=== PATIENT | male | born 1960 | race Caucasian/White ===

== ENCOUNTER 2024-04-09 16:23 | Emergency (ER) | payer MEDICARE ==
[2024-04-09] MEDS ORDERED: Naloxone 2 MG/2 ML Syringe IVPUSH PRN ×2 (16:32→20:38)
[2024-04-09] MEDS: HYDROmorphone 2 MG/ML Syringe IVPUSH PRN (16:35)
[2024-04-09] MEDS: HYDROmorphone 1 MG/ML Syringe IVPUSH ONE (16:37)
[2024-04-09] MEDS: Tranexamic Acid 1,000 MG in Sodium Chloride 0.9% 100 ML IV SCH (16:39)
[2024-04-09] MEDS: HYDROmorphone 2 MG/ML Syringe IVPUSH ONE (16:45)
[2024-04-09 16:46] LABS: BASOPHILS ABSOLUTE AUTO 0.05 K/uL (0.02-0.10); BASOPHILS PERCENT AUTO 0.4 % (0.0-0.5); EOSINOPHILS ABSOLUTE AUTO 0.14 K/uL (0.04-0.40); EOSINOPHILS PERCENT AUTO 1.1 % (1.0-5.0); HEMATOCRIT 46.1 % (40.0-54.0); HEMOGLOBIN 15.5 g/dL (13.0-18.0); LYMPHOCYTES ABSOLUTE AUTO 2.78 K/uL (1.50-4.00); MEAN CORPUSCULAR HEMOGLOBIN 29.5 pg (27.0-32.0); MEAN CORPUSCULAR HGB CONC 33.6 g/dL (31.0-35.0); MEAN CORPUSCULAR VOLUME 88 fL (76-96); MONOCYTES ABSOLUTE AUTO 1.31 K/uL (0.20-0.80); MONOCYTES PERCENT AUTO 9.9 % (3.0-10.0); NEUTROPHILS ABSOLUTE AUTO 8.94 K/uL (2.00-7.50); NEUTROPHILS PERCENT AUTO 67.6 % (45.0-70.0); PLATELET COUNT,PLT 222 K/uL (150-400); RED BLOOD CELL COUNT 5.25 M/uL (4.50-6.50); WHITE BLOOD CELL COUNT,WBC 13.2 K/uL (4.0-11.0)
[2024-04-09 16:59] LABS: A/G RATIO 1.1 (0.8-2.0); ALANINE AMINOTRANSFERASE,ALT 53 U/L (12-78); ALBUMIN 4.2 g/dL (3.4-5.0); ALKALINE PHOSPHATASE 118 U/L (46-116); ANION GAP 14.8 mmol/L (5.0-15.0); ASPARTATE AMNIOTRANSFERASE,AST 24 U/L (15-37); BILIRUBIN TOTAL 0.7 mg/dL (0.0-1.0); BLOOD UREA NITROGEN,BUN 19 mg/dL (8-26); BUN/CREATININE RATIO 14.2 (6-25); CALCIUM 8.6 mg/dL (8.5-10.1); CARBON DIOXIDE,CO2 28.9 mmol/L (21.0-32.0); CHLORIDE,CL 102 mmol/L (98-107); CREATININE 1.34 mg/dL (0.70-1.30); ESTIMATED GFR 60 mL/min (>60); GLUCOSE RANDOM 214 mg/dL (74-100); POTASSIUM,K 3.7 mmol/L (3.5-5.1); PROTEIN TOTAL,TP 8.1 g/dL (6.4-8.2); SODIUM,NA 142 mmol/L (136-145)
[2024-04-09 17:04] LABS: PTT,PARTIAL THROMBOPLSTIN TIME 24.5 SECONDS (24.4-33.2)
[2024-04-09 17:06] LABS: PROTHROMBIN TIME 10.6 sec (9.0-11.5)
[2024-04-09] MEDS: Tranexamic Acid 1,000 MG/10 ML Vial ONE (17:10)
[2024-04-09] MEDS: diazePAM 5 MG/ML MDV IV ONE (17:12)
[2024-04-09] MEDS: Piperacillin/Tazobactam 3.375 GM in Sodium Chloride 0.9% 100 ML IV SCH ×2 (17:21→17:28)
[2024-04-09] MEDS: Diphtheria,Pertussis(Acell),Tetanus Vaccine 0.5 ML Syringe IM ONE (17:46)
[2024-04-09] MEDS: diphenhydrAMINE 50 MG/ML SDV IVPUSH ONE (17:53)
[2024-04-09] MEDS: Sodium Chloride 0.9% 1,000 ML IV ONE (18:05)
[2024-04-09] MEDS: diphenhydrAMINE 50 MG/ML SDV ONE (19:26)
[2024-04-09] MEDS ORDERED: HYDROmorphone 2 MG/ML Syringe IVPUSH ONE (20:38)
[2024-04-09] MEDS ORDERED: Piperacillin/Tazobactam 3.375 GM in Sodium Chloride 0.9% 100 ML IV SCH (23:00)
== END 2024-04-09 19:26 ==
LOC: LB.ED 16:23
DX: S41.112A Laceration without foreign body of left upper arm, initial encounter (principal); Z88.8 Allergy status to other drugs, medicaments and biological substances; W00.0XXA Fall on same level due to ice and snow, initial encounter; Z23 Encounter for immunization
CPT/HCPCS: 36415; 73070-LT; 80053; 85025; 85610; 85730; 90471; 90715; 96361; 96365; 96375; 96376; 99285; 99285-25; A0425; A0428; J1171; J1200; J2543; J3360; J3490; J7030